=== PATIENT | female | born 1965 | race Caucasian/White ===

== ENCOUNTER 2017-05-06 14:22 | Emergency (ER) | payer BC ==
[2017-05-06] MEDS ORDERED: Aspirin 81 MG Tab.Chew PO ONE (15:00)
[2017-05-06] MEDS ORDERED: Isosorbide Mononitrate 30 MG Tab.ER PO ONE (16:40)
[2017-05-06] MEDS ORDERED: Nitroglycerin 0.4 MG Tab.SL SL ONE (16:44)
[2017-05-06 16:52] VITALS: BP 150/72
--- NOTE | 2017-05-07 05:15 | ER ---
DATE SEEN: 05/06/2017 CHIEF COMPLAINT: Chest pain. 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 She had some jaw discomfort and is 5/10 in intensity. There was some tightness in her chest and her arms, but then it relented. She has had this on 2 other occasions in the last 4 weeks. Today's symptoms were associated with mild shortness of breath, heaviness in her chest, but no diaphoresis, nausea, vomiting, lightheadedness, palpitations, irregular heartbeat, back pain, or arm pain. She has a slight cough. She attributes that to her smoking. She smokes less than a pack of cigarettes per day for several years. PAST MEDICAL HISTORY: Significant for depression, previous surgery in her left shoulder x2, left knee ACL repair since high school softball injury, she has other medical problems, depression, and she has hypertension. She has a significant history of brother, had myocardial infarction at age 51. The patient has reached 52 years of age and she is worried that she may have the same genetic predisposition. She has also had documented C-spine disc disease, mild. REVIEW OF SYSTEMS: HEENT: Negative. Denies sinusitis, sore throat, hearing changes, compromise of vision. CARDIORESPIRATORY: As noted above. Denies dyspnea on exertion, shortness of breath, recent surgery in the last 4 weeks, or having laid in the bed for 3 days. No recent influenza or infection or fever. GI: Denies acid peptic disease, reflux, abdominal discomfort, blood in her stool, black tarry stool, or diarrhea. : Denies frequency, urgency, or dysuria. She is a 1, para 1-0-0-1. NECK: She has intermittent neck stiffness when she sleeps on, because she has C-spine abnormalities. Last menstrual period is presently. PHYSICAL EXAMINATION: VITAL SIGNS: Blood pressure 126/82, respirations 14, oxygen saturation 98%, heart rate 89. BMI is 30.2 kg/m2. GENERAL: Alert woman, mildly overweight, well-tanned, pleasant, in no acute distress. She does not have chest pain presently. HEENT: PERRLA intact. Pharynx is without abnormality. No thyromegaly or masses. NECK: No cervical adenopathy. No bruits in neck. Neck is nontender. LUNGS: Clear to auscultation without rales, rhonchi, or wheezes. HEART: S1, S2. No murmur. No irregular rate and rhythm. No heave. ABDOMEN: Soft. No guarding. No abdominal discomfort. She has mild increased abdominal girth. No CVA percussion tenderness. LOWER EXTREMITIES: Without edema. No tenderness of the vascular structures. No linear angiitis. Deep tendon reflexes are normal in upper lower extremities. NEUROLOGICAL: Cranial nerves 2 through 12 intact, oriented x3. No pronator drift. Decreased muscle strength in upper and lower extremities and no dysmetria. LABORATORY STUDIES: EKG: Considering ischemia, she has T-wave inversion in leads I, V1, V2, and flattened V3 T-wave. Also, flattened T-wave in lead I. No ST elevation. Troponin is negative 0.01. Repeat troponin is pending. Hemoglobin 13.3, white count 12,300, PMNs 77, lymphocytes 15, monos 5, platelets 333,000. Sodium is slightly low at 133, potassium 3.5, chloride 101, bicarb 24, BUN 14, creatinine 0.8. GFR greater than 60. BUN and creatinine ratio is 17.5, glucose 114. Troponin is less than 0.01. Repeat troponin is pending. ASSESSMENT: 1. Chest pain, etiology indeterminate. Possible stable angina, possible nonspecific chest pain, not cardiac. At this point, not indeterminate. 2. Overweight with mild obesity. 3. Status post anterior cruciate ligament repair, left. 4. Status post left shoulder surgery x2. 5. Depression. 6. Chronic smoking, less than a pack a day. PLAN: 1. Status discussed with Dr. Comer. Plan to consider stress testing. If she should have chest pain in the interval, she would come back to the emergency room. She has nitroglycerin, she knows how to use sublingually. If she has more than 2 episodes of chest pain, she is to call the ambulance and return to the ED. 2. She was given a tablet of Imdur long-acting with nitroglycerin for this evening. 3. The stress testing in clinic, which is the Cardiolite stress test to be performed tomorrow at [facility] and they will be calling her in the morning. The patient was seen at 1425 hours. /[id number] PEE/DAVID CORONA
[2017-05-07] MEDS ORDERED: Aspirin 81 MG Tab.EC PO SCH (09:00)
--- NOTE | 2017-05-07 13:06 | CR ---
INDICATION: Chest pain, negative laboratory studies and negative EKG. CHEST: PA and lateral views of the chest 05/06/17 revealed somewhat hyperaerated appearing lungs, slightly flattened diaphragm leaves, and somewhat prominent AP diameter with interdigitation of diaphragm leaves, all compatible with COPD. An active infiltrate, effusion, or pneumothorax was not identified. Heart and mediastinum were unremarkable. A minimal dextroconcave scoliosis of the low middle thoracic spine is noted. Overlying EKG leads are noted. IMPRESSION: 1. No acute process. 2. COPD. 3. Minimal scoliosis. MTDD
== END 2017-05-06 16:55 | disposition home or self-care (01) ==
LOC: FB.ED 14:22
DX: R07.9 Chest pain, unspecified (principal); E66.9 Obesity, unspecified; F32.9 Major depressive disorder, single episode, unspecified; F17.210 Nicotine dependence, cigarettes, uncomplicated; Z98.890 Other specified postprocedural states
CPT/HCPCS: 36415; 71020; 80053; 84484; 85025; 85651; 86140; 93005; 99285; A9270